=== PATIENT | male | born 1995 | race Caucasian/White ===

== ENCOUNTER 2019-08-01 00:31 | Emergency (ER) | payer OTHER ==
[2019-08-01] MEDS ORDERED: EPINEPHrine 1 MG/ML SDV IM ONE (00:36)
[2019-08-01] MEDS ORDERED: methylPREDNISolone Sodium Succinate 125 MG/2 ML SDV IV ONE (00:36)
[2019-08-01] MEDS ORDERED: diphenhydrAMINE 50 MG/ML SDV IVPUSH ONE (00:36)
--- NOTE | 2019-08-01 00:39 | EDM.PDOC ---
ED HPI GENERAL MEDICAL PROBLEM - General Stated Complaint: RASH ON ENTIRE BODY Time Seen by Provider: 08/01/19 00:36 Source of Information: Reports: Patient, RN Notes Reviewed History Limitations: Reports: No Limitations - History of Present Illness INITIAL COMMENTS - FREE TEXT/NARRATIVE: 24-year-old gentleman presents emergency department today with complaint of allergic reaction, he is unsure where this started initially had some redness yesterday on his scan took some Benadryl resolved today a few spots took some Benadryl again no difficulty but then when he got off work came home developed hives entire body felt short of breath difficulty breathing throat swelling presented to the emergency department - Related Data Allergies Allergy/AdvReac Type Severity Reaction Status Date / Time maria elena Allergy Hives Verified 08/01/19 00:42 pistachio nut Allergy Hives Verified 08/01/19 00:42 Home Meds: Home Meds Metoclopramide [Reglan] 5 mg PO Q8H PRN 08/01/19 [History] Past Medical History - Past Health History Medical/Surgical History: Denies Medical/Surgical History Social & Family History - Tobacco Use Smoking Status *Q: Never Smoker ED ROS ALLERGIC REACTION - Review of Systems Review Of Systems: See Below Constitutional: Reports: No Symptoms HEENT: Reports: Throat Swelling Respiratory: Reports: Shortness of Breath Skin: Reports: Rash, Erythema ED EXAM GENERAL NO PERIP PULSE - Physical Exam Exam: See Below Text/Narrative:: Hives entire body face is spared Exam Limited By: No Limitations General Appearance: Alert, Mild Distress Respiratory/Chest: No Respiratory Distress, Chest Non-Tender, Decreased Breath Sounds Cardiovascular: Regular Rate, Rhythm, No Murmur GI/Abdominal: Soft, Non-Tender Course - Vital Signs Last Recorded V/S: Last Vital Signs Temp 96.1 F 08/01/19 00:35 Pulse 65 08/01/19 02:20 Resp 16 08/01/19 02:20 BP 116/63 08/01/19 02:20 Pulse Ox 95 08/01/19 02:20 - Orders/Labs/Meds Meds: Medications Discontinued Medications Generic Name Dose Route Start Last Admin Trade Name Freq PRN Reason Stop Dose Admin Diphenhydramine HCl 25 mg 08/01/19 00:36 08/01/19 00:50 Benadryl IVPUSH 08/01/19 00:37 25 mg ONETIME ONE Administration Epinephrine HCl 0.3 mg 08/01/19 00:36 08/01/19 00:33 Adrenalin IM 08/01/19 00:37 0.3 mg ONETIME ONE Administration Methylprednisolone Sodium Succinate 125 mg 08/01/19 00:36 08/01/19 00:50 Solu-Medrol IV 08/01/19 00:37 125 mg ONETIME ONE Administration Ondansetron HCl 4 mg 08/01/19 00:41 08/01/19 00:51 Zofran IVPUSH 08/01/19 00:42 4 mg ONETIME ONE Administration Departure - Departure Time of Disposition: 03:09 Disposition: Home, Self-Care 01 Condition: Fair Clinical Impression: Allergic reaction Qualifiers: Encounter type: initial encounter Qualified Code(s): T78.40XA - Allergy, unspecified, initial encounter - Discharge Information Additional Instructions: Use the injectable epinephrine as needed, Please followup with your primary care provider in 3-5 days if not better, please call return to the emergency department with worsening of symptoms. - Assessment/Plan Plan: Assessment Acuity = acute Site and laterality = allergic reaction Etiology = unknown etiology Manifestations = hives now resolved Location of injury = Home Lab values = none Plan Good relief, Benadryl, epinephrine and Solu-Medrol prescription written for injectable epinephrine 0.3 mg IM subcutaneous 12 pack follow-up primary care 3- 5 days if no improvement This note was dictated using [employer] voice recognition software please call with any questions on syntax or grammar.
[2019-08-01] MEDS ORDERED: Ondansetron 4 MG/2 ML SDV IVPUSH ONE (00:41)
== END 2019-08-01 03:20 | disposition home or self-care (01) ==
LOC: JP.ED 00:31
DX: T78.40XA Allergy, unspecified, initial encounter (principal); Z91.018 Allergy to other foods
CPT/HCPCS: 96372; 96374; 96375; 99284; J0171; J1200; J2405; J2930